=== PATIENT | female | born 1935 | race Asian ===

== ENCOUNTER → 2019-09-10 12:56 | Outpatient (CLI) | payer MEDICARE, OTHER, SELFPAY ==
--- NOTE | 2019-09-10 | DI.MRI.S_ITS ---
PROCEDURE: MR HEAD/BRAIN WO CON INDICATIONS: Other symptoms and signs involving cognitive function TECHNIQUE: Non-contrast axial T1 spin echo, axial T2 fast spin echo, sagittal and axial FLAIR, coronal T2 fast spin echo, axial gradient echo, axial diffusion and ADC through the brain. COMPARISON: None. FINDINGS: Image quality: This examination is limited by involuntary motion artifact. CSF spaces: Ventricles appear symmetric in size and shape. Basal cisterns are patent. No extra-axial fluid collections. Brain: No intracranial bleeds or mass effects. There is cerebral volume loss for age. There are periventricular and deep white matter chronic small vessel ischemic changes. Brainstem appears normal. Diffusion-weighted images show no acute ischemic insults. No chronic ischemic insults. Normal intravascular flow voids are present. Skull and face: Calvarial bone marrow is normal in signal. Orbits are normal. A right lens replacements are seen. Sinuses: Sinuses and mastoids are clear. IMPRESSION: Motion limited study demonstrating parenchymal volume loss and chronic small vessel ischemic change. Note is made of age-appropriate brain parenchymal volume loss and chronic small vessel ischemic changes. No findings of acute or subacute infarction can be seen. Dictated by: Srini Soliman M.D. on 09/10/2019 at 14:18 Approved by: Srini Soliman M.D. on 09/10/2019 at 14:19
== END ==
PROVIDERS: PCP Family Medicine; Referring Provider Psychiatry & Neurology Neurology; Visit Provider Psychiatry & Neurology Neurology
DX: R41.89 Other symptoms and signs involving cognitive functions and awareness (principal)
CPT/HCPCS: 70551

== ENCOUNTER → 2020-09-23 11:10 | Outpatient (CLI) | payer MEDICARE, OTHER, SELFPAY ==
--- NOTE | 2020-10-15 10:51 | PM.CARDMON.1 ---
[employer] Report Referral & Results Date Patient Seen: 09/23/20 Requesting provider: Danuta Hilario Indication: Arrhythmia Duration of monitoring (days): 14 Diary information: there were 2 patient triggered events These events were associated with ( within 45 seconds) sinus rhythm and PACs Data: minimum heart rate identified was 63 beats per minute at 00:30 on 10/05/2020 Maximum sinus heart rate was 124 beats per minute at 09:19 on 09/30/2020 Maximum overall heart rate was 182 beats per minute at 15:40 on 10/06/2020 during a 14 beat run of SVT Less than 1% of identified beats or either ventricular supraventricular ectopic in origin There were 21 runs of SVT the fastest being the above-listed run, the longest lasting 15 beats at a rate of 101 beats per minute which suggest more atrial tachycardia than true SVT Impression: 14 day pvc monitor showing very rare very brief runs of SVT as well as rare PACs and PVCs Based on patient's reported events symptoms, if any, maybe related to PACs Clinical correlation suggested
== END ==
PROVIDERS: PCP Family Medicine; Referring Provider Physician Assistant; Visit Provider Physician Assistant
DX: I49.9 Cardiac arrhythmia, unspecified (principal); I48.0 Paroxysmal atrial fibrillation
CPT/HCPCS: 93246; 93248